=== PATIENT | male | born 1945 | race Caucasian/White ===

== ENCOUNTER 2017-07-26 10:45 | Inpatient (IN) | payer MEDICARE ==
[~2017-07-26] VITALS: Ht 185.4 cm; Wt 115.6 kg
--- NOTE | ~2017-07-26 | EKG ---
PATIENT: MINNIE BRICE UNIT #: [id number] Ventricular Rate: 67 BPM Atrial Rate: 67 BPM P-R Interval: 166 ms QRS Duration: 72 ms Q-T Interval: 394 ms QTC Calculation(Bezet): 416 ms P [place]: 14 degrees Calculated R [place]: 2 degrees Calculated T [place]: 10 degrees Diagnosis Line: Normal sinus rhythm Diagnosis Line: Normal ECG Diagnosis Line: No previous ECGs available Diagnosis Line: Confirmed by TESS SPRING MD ([id number]) on Diagnosis Line: 07/26/2017 11:07:34 PM INTERPRETING MD: BREANNA
--- NOTE | ~2017-07-26 | HP ---
Unit #: [id number] #: [id number] Patient: MINNIE BRICE [id number] [address] [place], [place] [address] [id number] I MR#: [id number] NAME: MINNIE BRICE. ROOM: 61314 Age: 72 Sex: M Admission Date: 07/26/2017 : 1945 Attending Physician: Radha Pena M.D. HISTORY AND PHYSICAL CHIEF COMPLAINT Abdominal pain. HISTORY OF PRESENT ILLNESS The patient is a 72-year-old male with a past medical history of hypertension, hyperlipidemia, borderline diabetes, coronary artery disease, hypothyroidism, and footdrop, who presented to the emergency department for evaluation of the above. The patient states that he was in his usual state of health until the evening prior to admission around 11 p.m. when he experienced abdominal pain. He states that the pain is in his upper abdomen. He describes it as "sharp." There are no exacerbating or alleviating factors. He denies any similar pain. He denies any vomiting. He has had loose stool. He states that he had fish and onion rings on the evening prior to admission, and the pain occurred several hours following that meal. Upon arrival in the emergency department, initial temperature was 98.3, pulse 76, blood pressure 151/85. CT of the abdomen and pelvis showed mild acute pancreatitis. Lipase is 403. He was given 500 mL of normal saline, as well as 0.5 mg of Dilaudid and 4 mg of Zofran. He is being admitted to [facility] for evaluation and further treatment. PAST MEDICAL HISTORY 1. Admission to [facility] July 27, 2006, for chest pain. Per the patient, he was transferred to [facility] due to myocardial infarction at that time. He underwent cardiac catheterization with stent placement. 2. Coronary artery disease, status post stent placement[facility]. 3. Hypertension. 4. Hyperlipidemia. 5. "Borderline diabetes." The patient was started on metformin four weeks ago. 6. Hypothyroidism. 7. Right footdrop. PAST SURGICAL HISTORY 1. Colonoscopy February 16, 2005, was completely normal. 2. Cardiac catheterization. 3. Cardiac stent placement. 4. Excision of skin cancer. SOCIAL HISTORY Unit #: [id number] #: [id number] Patient: MINNIE BRICE The patient lives with his . He quit smoking cigarettes. He states that he occasionally smokes cigars. He reports occasional alcohol use. He is retired. FAMILY HISTORY Notable for his dad and brother both having diabetes. ALLERGIES No known allergies. HOME MEDICATIONS 1. Atorvastatin. 2. Cetirizine. 3. Chlorthalidone. 4. Cyclobenzaprine. 5. Finasteride. 6. Levothyroxine. 7. Lisinopril. 8. Metoprolol. 9. Omeprazole. 10. Terazosin. 11. Metformin is not listed, but he states he was recently started on that. Home medications will need to be reviewed and verified. REVIEW OF SYSTEMS A complete review of systems is negative except as indicated in the HPI. PHYSICAL EXAMINATION VITAL SIGNS: Temperature is 98.3, pulse 76, respirations 18, blood pressure 151/85, and oxygen saturation 100% on room air. GENERAL: The patient is a very pleasant male who is awake, alert, and in no acute distress. HEENT: Head is atraumatic. Mucous membranes are moist. NECK: Supple. Trachea is midline. CARDIOVASCULAR: Regular rate and rhythm. LUNGS: Clear to auscultation bilaterally with no increased work of breathing. ABDOMEN: Soft. He is tender to palpation throughout, worse in the epigastric and upper quadrants. Bowel sounds are present in all four quadrants. EXTREMITIES: Nontender with no pedal edema. NEUROLOGIC: The patient is awake and alert. He follows commands. PSYCHIATRIC: Mood and affect are normal. The patient is cooperative. SKIN: Skin of examined areas is warm and dry. DIAGNOSTIC STUDIES LABORATORY: Complete blood count is completely normal. Urinalysis is essentially normal. Comprehensive metabolic panel notable for glucose of 122, ALT is 45, and lipase 403. Blood alcohol level is less than 5. IMAGING: CT of the abdomen and pelvis shows findings concerning for acute pancreatitis. ASSESSMENT The patient is a 72-year-old male with: 1. Acute pancreatitis. The patient is on several medication which could Unit #: [id number] #: [id number] Patient: MINNIE BRICE cause pancreatitis including atorvastatin, chlorthalidone, lisinopril, and omeprazole. 2. Hypertension. 3. Hyperlipidemia. 4. "Borderline diabetes." 5. Coronary artery disease, status post stent placement. 6. Hypothyroidism. 7. Footdrop. 8. Tobacco abuse. PLAN 1. Admit to intermediate level. 2. Normal saline at 100 mL/hour. 3. N.p.o. except medications and ice chips. 4. P.r.n. Dilaudid. 5. P.r.n. Zofran. 6. Right upper quadrant ultrasound to rule out cholelithiasis. 7. Fasting lipid panel. 8. Hold atorvastatin, chlorthalidone, lisinopril, and omeprazole which could be causing pancreatitis. 9. EKG and cardiac enzymes if not done. 10. Hemoglobin A1c. 11. Low-dose sliding scale insulin with Accu-Cheks. 12. Check TSH. 13. Repeat labs in the morning including amylase and lipase. 14. SCDs for DVT prophylaxis. 15. Additional workup and consultants based on above. 1. Dictated by Zo Toure/leda TD: 07/26/2017 21:11 JOB #: [id number] HISTORY AND PHYSICAL Page 1 of 1 X Radha Pena MD X HISTORY AND PHYSICAL
--- NOTE | ~2017-07-26 | DS ---
Unit #: [id number] #: [id number] Patient: MINNIE BRICE [id number] [address] [place], [place] [address] [id number] I MR#: [id number] NAME: MINNIE BRICE. ROOM: 55 Age: 72 Sex: M Admission Date: 07/26/2017 : 1945 Discharge Date: 07/28/2017 Attending Physician: Suresh Ramon M.D. Primary Care Physician: Generic Doctor Not In System DISCHARGE SUMMARY REASON FOR ADMISSION Abdominal pain. HISTORY OF PRESENT ILLNESS/HOSPITAL COURSE Patient is a 72-year-old, very pleasant male with past medical history of hypertension, hyperlipidemia, diabetes, coronary artery disease, hypothyroidism. Usually goes to the [facility]. Presented secondary to abdominal pain and/or discomfort. Underwent routine laboratory studies. Showed a lipase level of 403. Initial CT abdomen, pelvis showed mild acute pancreatitis. He was subsequently admitted, placed on telemetry floor for the same. He was gradually transitioned, placed on routine protocol from clear diet into regular diet to which he has tolerated well without difficulty. This morning his lipase currently stands at 57. LFTs unremarkable. White count 8.6 and hemoglobin is 12.5. At this point in time patient is clinically stable for discharge. His medications have been adjusted. His metformin has been discontinued altogether, and he has been resumed on a different diabetic regimen, as detailed below. FINAL DISCHARGE DIAGNOSES 1. Acute pancreatitis, likely secondary to medications. 2. Hypertension. 3. Hyperlipidemia. 4. Diabetes. 5. Coronary artery disease. 6. Hypothyroidism. 7. Morbid obesity. FINAL DISCHARGE MEDICATIONS 1. Zyrtec 10 mg p.o. daily. 2. Lipitor 40 mg p.o. daily. 3. Hytrin 2 mg p.o. q.h.s. 4. Omeprazole 20 mg p.o. daily. 5. Levothyroxine 100 mcg p.o. daily. 6. Prinivil 10 mg p.o. daily. 7. Amaryl 2 mg p.o. q.a.m. with breakfast. DISCHARGE CONDITION Stable. Unit #: [id number] #: [id number] Patient: MINNIE BRICE DISCHARGE DISPOSITION Home. FOLLOW UP Follow up PCP 7 to 10 days. Dictated by... Zo Washington/lola TD: 07/31/2017 13:14 JOB #: [id number] DISCHARGE SUMMARY Page 1 of 1 X Suresh Ramon MD X DISCHARGE SUMMARY
--- NOTE | ~2017-07-26 | CT2 ---
[facility] A Service [facility] RADIOLOGY TEXT RESULTS PATIENT: MINNIE BRICE LOCATION: [place] [address] : [birth year] UNIT #: [id number] AGE: [address]: Suresh Ramon MD SEX: M ORDER DR: [id number] [address] [address] [id number] E MR#: [id number] Acc #: [id number] NAME: MINNIE BRICE : 1945 SEX: M STUDY DATE/TIME: 07/26/2017 13:33 UNIT: SHANA ROOM: STUDY DESCRIPTION: CT Abd and Pelv W Cont Attending Physician: Jovany Barger M.D. Ordering Physician: Jovany Barger M.D. Primary Care Physician: Generic Doctor Not In System MEDICAL IMAGING REPORT This report is preliminary unless electronic signature is present EXAM CT abdomen and pelvis with contrast INDICATIONS Generalized abdominal pain since last night. PROCEDURE Contrast-enhanced CT of the abdomen and pelvis. This CT exam was performed with one or more of the following radiation dose reduction techniques: Automatic exposure control, adjustment of mA and/or kV according to patient size, and iterative reconstruction. COMPARISON None. FINDINGS ABDOMEN WITH CONTRAST: Included lung bases are clear. Probable hepatic steatosis. No liver lesions seen on this single-phase study. The spleen, kidneys, adrenal glands are unremarkable. There is mild peripancreatic stranding and inflammatory change. No organized fluid collection. Portal vein remains patent. Unremarkable gallbladder. Bowel loops are nondilated. PELVIS WITH CONTRAST: No pelvic mass or fluid. No aggressive appearing bone lesion. IMPRESSION 1. Mild acute pancreatitis. No evidence for pseudocyst or portal vein thrombus. 2. Probable hepatic steatosis. [facility] A Service of [facility] RADIOLOGY TEXT RESULTS PATIENT: MINNIE BRICE LOCATION: [place] [address] : [birth year] UNIT #: [id number] AGE: [address]: Suresh Ramon MD SEX: M ORDER DR: Dictated by... Yoel Altamirano M.D. THIS IS AN ELECTRONICALLY VERIFIED REPORT Yoel Altamirano M.D. at 07/28/2017 9:53 PM EED/psc TD: 07/26/2017 15:56 JOB #: [id number] MEDICAL IMAGING REPORT Page 1 of 1 COPY
[~2017-07-26 10:45] MED LIST: SYNTHROID
[2017-07-26 11:29] LABS: URINE SOURCE CLEAN CATCH
[2017-07-26 11:35] LABS: URINE APPEARANCE CLEAR; URINE BILIRUBIN NEG (NEG); URINE BLOOD NEG (NEG); URINE COLOR YELLOW; URINE GLUCOSE NEG (NEG); URINE KETONE NEG (NEG); URINE LEUKOCYTE ESTERASE NEG (NEG); URINE NITRATE NEG (NEG); URINE PH 6.5 (5-8); URINE PROTEIN NEG (NEG); URINE SPECIFIC GRAVITY 1.017 (1.003-1.035); URINE UROBILINOGEN 0.2 MG/DL (NEG)
[2017-07-26 11:36] LABS: BASOPHIL% 0.3 % (0-2.5); EOSINOPHIL# 0.1 X10e3 (0-0.7); EOSINOPHIL% 1.4 % (0.0-7.0); HEMATOCRIT 40.3 % (38.0-50.0); HEMOGLOBIN 13.9 gm/dL (13.0-16.0); LYMPHOCYTE# 2.1 X10e3 (1.0-3.5); LYMPHOCYTE% 20.4 % (17.0-45.0); MEAN CELL VOLUME 95.1 FL (83-96); MEAN CORPUSCULAR HEMOGLOBIN 32.7 PG (28-34); MEAN CORPUSCULAR HGB CONC 34.4 g/dL (30-36); MEAN PLATELET VOLUME 7.7 FL (6.5-11.5); MONOCYTE# 1.2 X10e3 (0-1.0); NEUTROPHIL% 66.9 % (40-75); PLATELET COUNT 194 X10e3 (140-420); RED BLOOD COUNT 4.24 X10e (3.90-5.60); RED CELL DISTRIBUTION WIDTH 13.3 % (11.0-15.5); WHITE BLOOD COUNT 10.5 X10e3 (4.0-10.5)
[2017-07-26 11:40] LABS: DIFF IND NO
[2017-07-26 11:45] LABS: CULTURE INDICATED? NO
[2017-07-26 12:37] LABS: ALBUMIN SERUM 4.1 g/dL (3.5-5.0); BILIRUBIN, DIRECT 0.1 mg/dL (0.0-0.2); BILIRUBIN,INDIRECT 0.8 mg/dL (0.0-0.9); BILIRUBIN,TOTAL 0.9 mg/dL (0.2-2.0); BUN/CREATININE RATIO 18.75; CALCIUM SERUM 9.4 mg/dL (8.4-10.2); CREATININE SERUM 0.8 mg/dL (0.6-1.4); GLOM FILT RATE Estimated 89.9 mL/min (>60); POTASSIUM 3.7 mmol/L (3.5-5.1); PROTEIN TOTAL SERUM 7.2 g/dL (6.0-8.3)
[2017-07-26 19:35] LABS: %MB 1.8 % (0.0-4.0); MB 3.1 ng/ml
[2017-07-27] MEDS ORDERED: LIPITOR80 MG PO (01:32)
[2017-07-27] MEDS ORDERED: ALL DAY ALLERGY10 M3 PO (01:33)
[2017-07-27] MEDS ORDERED: FLEXERIL10 MG PO (01:34)
[2017-07-27] MEDS ORDERED: CHLORTHALIDONE25 MG PO (01:34)
[2017-07-27] MEDS ORDERED: FINASTERIDE5 M1 PO (01:37)
[2017-07-27] MEDS ORDERED: TIROSINT100 MCG PO (01:38)
[2017-07-27] MEDS ORDERED: PRINIVIL40 MG PO (01:39)
[2017-07-27] MEDS ORDERED: TOPROL XL50 MG PO (01:40)
[2017-07-27] MEDS ORDERED: OMEPRAZOLE20 M1 PO (01:41)
[2017-07-27] MEDS ORDERED: HYTRIN2 M1 PO (01:42)
[2017-07-27] MEDS ORDERED: FORTAMET1000 MG PO (01:43)
[2017-07-27 02:09] LABS: %MB 1.8 % (0.0-4.0); MB 2.7 ng/ml
[2017-07-27 02:24] LABS: HEMOGLOBIN 12.8 gm/dL (13.0-16.0); MEAN CELL VOLUME 95.2 FL (83-96); MEAN CORPUSCULAR HGB CONC 34.7 g/dL (30-36); MEAN PLATELET VOLUME 8.5 FL (6.5-11.5); RED BLOOD COUNT 3.89 X10e (3.90-5.60); RED CELL DISTRIBUTION WIDTH 13.1 % (11.0-15.5); WHITE BLOOD COUNT 8.9 X10e3 (4.0-10.5)
[2017-07-27 02:41] LABS: ALBUMIN SERUM 3.5 g/dL (3.5-5.0); BUN/CREATININE RATIO 17.5; CALCIUM SERUM 8.6 mg/dL (8.4-10.2); CREATININE SERUM 0.8 mg/dL (0.6-1.4); GLOM FILT RATE Estimated 89.9 mL/min (>60); POTASSIUM 3.6 mmol/L (3.5-5.1); PROTEIN TOTAL SERUM 6.4 g/dL (6.0-8.3)
[2017-07-28 07:15] LABS: HEMATOCRIT 36.4 % (38.0-50.0); HEMOGLOBIN 12.5 gm/dL (13.0-16.0); MEAN CELL VOLUME 95.6 FL (83-96); MEAN CORPUSCULAR HEMOGLOBIN 32.8 PG (28-34); MEAN CORPUSCULAR HGB CONC 34.3 g/dL (30-36); MEAN PLATELET VOLUME 8.1 FL (6.5-11.5); RED BLOOD COUNT 3.8 X10e (3.90-5.60); RED CELL DISTRIBUTION WIDTH 13.1 % (11.0-15.5); WHITE BLOOD COUNT 8.6 X10e3 (4.0-10.5)
[2017-07-28 07:41] LABS: ALBUMIN SERUM 3.5 g/dL (3.5-5.0); BILIRUBIN,TOTAL 1.1 mg/dL (0.2-2.0); BUN/CREATININE RATIO 11.42; CALCIUM SERUM 8.7 mg/dL (8.4-10.2); CREATININE SERUM 0.7 mg/dL (0.6-1.4); POTASSIUM 3.8 mmol/L (3.5-5.1); PROTEIN TOTAL SERUM 6.4 g/dL (6.0-8.3)
[2017-07-28] MEDS ORDERED: AMARYL2 MG PO (11:20)
== END 2017-07-28 14:35 | disposition home or self-care (01) | DRG 440 ==
LOC: CED 10:45 → CEDOF 17:50 → C5B 17:50 → CEDOF 18:19 → CED 18:19 → C5B 21:37 → CEDOF 21:37 → C5B 07-27 08:18
PROVIDERS: Emergency Medicine; Family Medicine; Internal Medicine
DX: K85.90 Acute pancreatitis without necrosis or infection, unspecified (principal); E11.9 Type 2 diabetes mellitus without complications; E66.01 Morbid (severe) obesity due to excess calories; I10 Essential (primary) hypertension; E78.5 Hyperlipidemia, unspecified; I25.10 Atherosclerotic heart disease of native coronary artery without angina pectoris; E03.9 Hypothyroidism, unspecified; M21.371 Foot drop, right foot; F17.210 Nicotine dependence, cigarettes, uncomplicated; Z95.5 Presence of coronary angioplasty implant and graft
CPT/HCPCS: 36415; 74177; 80048; 80053; 80061; 80076; 81003; 82150; 82550; 82553; 82947; 83036; 83690; 84443; 84484; 85025; 85027; 93005; 96361; 96374; 96375; 99285; C9113; G0480; J1170; J2270; J2405; Q9967